=== PATIENT | male | born 1965 | race Caucasian/White ===

== ENCOUNTER 2024-02-19 08:22 | Outpatient (OUT) | payer OTHER, SELFPAY ==
[2024-02-19 08:57] LABS: Basophils Absolute Auto 0.1 10^3/uL (0.0-0.1); Basophils Percent Auto 1.2 % (0.2-2.0); Eosinophils Absolute Auto 0.2 10^3/uL (0.0-0.7); Eosinophils Percent Auto 2.9 % (0.9-7.0); Hematocrit 47.6 % (42.0-54.0); Hemoglobin 16.3 g/dL (14.0-18.0); Immature Granulocytes Abs Auto 0.03 10^3/uL (0.00-0.03); Immature Granulocytes Pct Auto 0.4 % (0.0-0.5); Lymphocytes Absolute Auto 2.4 10^3/uL (1.2-3.8); Lymphocytes Percent Auto 34.5 % (20.5-60.0); Mean Corpuscular HGB Conc 34.2 g/dL (29.9-35.2); Mean Corpuscular Hemoglobin 31.3 pg (25.9-34.0); Mean Corpuscular Volume 91.4 fL (80.0-94.0); Mean Platelet Volume 9.1 fL (9.5-13.5); Monocytes Absolute Auto 1.1 10^3/uL (0.3-0.8); Neutrophils Absolute Auto 3.1 10^3/uL (1.4-6.5); Platelet Count 262 10^3/uL (150-450); Red Blood Count 5.21 10^6/uL (4.70-6.10); Red Cell Distribution Width 11.4 % (11.0-15.0); White Blood Count 6.9 10^3/uL (4.0-11.0)
[2024-02-19 09:59] LABS: Alanine Aminotransferase 38 U/L (16-63); Albumin Globulin Ratio 1.1; Albumin Level 4.3 g/dL (3.4-5.0); Alkaline Phosphatase 124 U/L (46-116); Anion Gap 14.2; Aspartate Amino Transferase 28 U/L (15-37); BUN Creatinine Ratio 16.5; Bilirubin Total 0.6 mg/dL (0.2-1.0); Calcium 9.9 mg/dL (8.5-10.1); Carbon Dioxide 30.8 mmol/L (21.0-32.0); Chloride 101 mmol/L (98-107); Chol HDL Ratio 3.1; Cholesterol 233 mg/dL (<=200); Estimated GFR (African America >60 (>=60 mL/min/1.73m^2); Estimated GFR (Non-African Ame >60 (>=60 mL/min/1.73m^2); Free T3 4.09 pg/mL (2.18-3.98); HDL Cholesterol 74 mg/dL (40-60); Sodium 143 mmol/L (136-145); Thyroid Stimulating Hormone 4.688 uIU/mL (0.358-3.740); Total Protein 8.3 g/dL (6.4-8.2); Triglycerides 334 mg/dL (<=150); VLDL CHOLESTEROL 66.8 mg/dL
[2024-02-19 10:19] LABS: Estimated Average Glucose 235 mg/dL; Glycohemoglobin A1C 9.8 % (4.5-6.2)
[2024-02-19 10:27] LABS: Glucose 45 mg/dL (74-106)
[2024-02-20 06:11] LABS: Insulin <0.4 uIU/mL (2.6-24.9)
== END 2024-02-19 08:23 | disposition home or self-care (01) ==
LOC: LAB 08:25
PROVIDERS: PCP Nurse Practitioner Family; Visit Provider Nurse Practitioner Family
DX: E11.65 Type 2 diabetes mellitus with hyperglycemia (principal); Z12.12 Encounter for screening for malignant neoplasm of rectum; E03.9 Hypothyroidism, unspecified
CPT/HCPCS: 36415; 80053; 80061; 83036; 83525; 84436; 84443; 84481; 85025

== ENCOUNTER 2024-10-18 13:57 | Outpatient (OUT) | payer OTHER, SELFPAY ==
--- NOTE | 2024-10-18 14:29 | XR_ITS ---
[facility] [id number] Patient Name: JOSUÉ JORDAN MRN: [id number] date: 1965 Sex: M Assigned Patient Location: LAB Current Patient Location: LAB Accession/Order Number: [id number] Exam Date: 10/18/2024 15:00 Report Date: 10/18/2024 15:01 At the request of: OLAYINKA AUGUSTINE Procedure: XR foot RT 2V Right foot 3 views. Reason for exam: Chronic right heel pain for 2 years. COMPARISON: None. FINDINGS: No focal soft tissue abnormality. No acute bony process is seen. Plantar spurring. No bony erosions. XR/XR foot RT 2V IMPRESSION: Plantar spurring. No acute bony process. Impression dictated by: Radha Coleman Jr.ODevyn 10/18/2024 3:01 PM Dictation Location: [place] [address] Electronically authenticated by: [id number] Y Date: 10/18/2024 15:01
== END 2024-10-18 13:58 | disposition home or self-care (01) ==
LOC: LAB 14:02
PROVIDERS: PCP Nurse Practitioner Family; Visit Provider Nurse Practitioner Family
DX: M79.671 Pain in right foot (principal); E11.65 Type 2 diabetes mellitus with hyperglycemia; M77.31 Calcaneal spur, right foot
CPT/HCPCS: 36415; 73620; 83036

== ENCOUNTER 2025-02-17 08:34 | Outpatient (OUT) | payer OTHER, SELFPAY ==
--- OUTSIDE RECORDS SUMMARY | 2025-02-17 08:42 | XMS_ITS | CCD ---
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 Role Phone DR BREE HUFF Attending Unavailable [place], DR LANGLEY Primary Care Unavailable DR BREE HUFF Admitting Unavailable REFUGIO, DR BREE Doan Consulting Unavailable CHAN, DR MANZANO Consulting Unavailable SENA FRANZ Consulting Unavailable Allergies Allergy ClassificationReported Allergen(s)Allergy TypeDate of OnsetReaction(s) Facility (1 source)PenicillinDrug AllergyThe [facility] Rep[facility] Problems Problem ClassificationProblemDateDocumented DateEpisodic/ChronicAlcohol-related disorders (2 sources)Alcohol dependence with withdrawal delirium; Translations: [Alcoholic hepatitis without ascites]Onset: 18-85-2761UrnuvcdTimdfys dysrhythmias (4 sources)Palpitations; Translations: [PALPITATIONS]Onset: 46-99-2492Caeokexb Conduction disorders (1 source)Left bundle-branch block, unspecified; Translations: [LT BUNDLE-BRANCH BLOCK UNSPECIFIED]Onset: 38-70-0091HrueaonPigmdmox mellitus without complication (1 source)Type 2 diabetes mellitus without complications; Translations: [TYPE 2 DM WITHOUT COMPLICATIONS]Onset: 63-28-7028BvbonunHepxleqxv of lipid metabolism (1 source)Pure hypercholesterolemia, unspecified; Translations: [PURE HYPERCHOLESTEROLEMIA UNSPEC]Onset: 21-98-8712WovkkrrNsvvozypw hypertension (1 source)Essential (primary) hypertension; Translations: [ESSENTIAL PRIMARY HYPERTENSION]Onset: 55-68-1501MoinzkpBlduqzrkpoaat and screening for infectious disease (1 source)Encounter for immunization; Translations: [ENCOUNTER FOR IMMUNIZATION] Onset: 93-48-5053BcxipaqfJhvhf aftercare (1 source)[facility] (current) use of insulin; Translations: [ASSISTED CURRENT USE OF INSULIN]Onset: 39-94-1636PizjsukhNjzyx aftercare (1 source)Other watermelon harvesting supervisor (current) drug therapy; Translations: [OTH ASSISTED CURRENT DRUG THERAPY]Onset: 74-29-1726NevduftdRwpcfmnuqibb (1 source)CONTACT W/AND (SUSP) EXPOS COVID-19; Translations: [CONTACT W/AND (SUSP) EXPOS COVID-19]Onset: 03-19-2022 Results Test NameValueInterpretationReference RangeFacilityCBC AUTO DIFFon 03-14-2022 BASO #0.1 103/ulNormal0.0-0.1[facility] HospitalComment on above:Performed By: #### CBC #### [facility] [address] [place] [address] Dr. David Schmittsophils/100 WBC (Bld)0.9 %Normal0.2-2.0[facility] Comment on above:Performed By: #### CBC #### [facility] [address] [place] [address] Dr. David Ocampo #0.2 103/ulNormal0.0-0.7The [facility] HospitalComment on above: Performed By: #### CBC #### [facility] [address] [place] [address] Dr. David Riveraosinophils/100 WBC (Bld)2.5 %Normal0.9-7.0[facility] Comment on above:Performed By: #### CBC #### [facility] [address] [place] [address] Dr. David Riverarythrocyte distribution width (RBC) [Ratio]11.8 %Yeieri04.0-15.0 [facility] HospitalComment on above:Performed By: #### CBC #### [facility] [address] [place] [address] Dr. David Mckoyatocrit (Bld) [Volume fraction]42.6 %Ccnbld23.0-54.0[facility] HospitalComment on above:Performed By: #### CBC #### [facility] [address] [place] [address] Dr. Yilan ChangHemoglobin (Bld) [Mass/Vol]14.4 g/vVQhmcdu58.0-18.0The [facility] HospitalComment on above:Performed By: #### CBC #### [facility] [address] [place] [address] Dr. David Gonzalez #0.03 10e3/ulNormal0.00-0.03The [facility] HospitalComment on above:Performed By: #### CBC #### [facility] [address] [place] [address] Dr. David Gonzalez %0.4 %Normal0.0-0.5The [facility] HospitalComment on above: Performed By: #### CBC #### [facility] [address] [place] [address] Dr. David Iqbal #1.6 103/ulNormal1.2-3.8The [facility] HospitalComment on above:Performed By: #### CBC #### [facility] [address] [place] [address] Dr. David Medranohocytes/100 WBC (Bld)23.2 %Jxotsi28.5-60.0The [facility] HospitalComment on above:Performed By: #### CBC #### [facility] [address] [place] [address] Dr. David MatamorosUAL DIFF REQNONormalThe [facility] HospitalComment on above: Performed By: #### CBC #### [facility] [address] [place] [address] Dr. David Babcock (RBC) [Entitic mass]30.8 vtYexltm50.9-34.0The [facility] HospitalComment on above:Performed By: #### CBC #### [facility] [address] [place] [address] Dr. David Babcock (RBC) [Mass/Vol]33.8 g/sMTlesqn01.9-35.2The [facility] HospitalComment on above:Performed By: #### CBC #### [facility] [address] [place] [address] Dr. David BabcockV (RBC) [Entitic vol]91.2 qJJggeze26.0-94.0The [facility] HospitalComment on above:Performed By: #### CBC #### [facility] [address] [place] [address] Dr. David Duncan #0.9 103/ulCritically high0.3-0.8[facility] Comment on above:Performed By: #### CBC #### [facility] [address] [address] [address] David Fairocytes/100 WBC (Bld)13.4 %Critically high1.7-12.0The [facility] HospitalComment on above:Performed By: #### CBC #### [facility] [address] [place] [address] Dr. David Lozano #4.1 103/ulNormal1.4-6.5The [facility] HospitalComment on above:Performed By: #### CBC #### [facility] [address] [place] [address] Dr. David Singhutrophils/100 WBC (Bld)59.6 %Wsloju70.0-75.0The [facility] HospitalComment on above:Performed By: #### CBC #### [facility] [address] [place] [address] Dr. David Chiulet mean volume (Bld) [Entitic vol]9.0 fLCritically low 9.5-13.5The [facility] HospitalComment on above:Performed By: #### CBC #### [facility] [address] [place] [address] Dr. David BenavidezPLT229 103/mzXudump419-446Xjz [facility] HospitalComment on above: Performed By: #### CBC #### [facility] [address] [place] [address] Dr. David BenavidezRBC4.67 106/ulCritically low4.70-6.10The [facility] HospitalComment on above:Performed By: #### CBC #### [facility] [address] [address] [address] David BenavidezWBC6.8 103/ulNormal4.0-11.0The [facility] HospitalComment on above: Performed By: #### CBC #### [facility] [address] [place] [address] Dr. David Castellanos 14(COMP METB)on 72-94-7242Gabsgzi [Mass/Vol]3.7 g/dLNormal 3.4-5.0The [facility] HospitalComment on above:Performed By: #### CMP #### [facility] [address] [place] [address] Dr. David BenavidezAlbumin/Globulin [Mass ratio]0.9 {ratio}NormalThe [facility] HospitalComment on above:Performed By: #### CMP #### [facility] [address] [place] [address] Dr. David SerranoP [Catalytic activity/Vol]148 U/LCritically ijxe37-940Vup [facility] HospitalComment on above:Performed By: #### CMP #### [facility] [address] [place] [address] Dr. David Metcalf [Catalytic activity/Vol]80 U/LCritically bmxd25-93Tma [facility] HospitalComment on above:Performed By: #### CMP #### [facility] [address] [place] [address] Dr. David Ambrose gap [Moles/Vol]18.1 mmol/LNormalThe [facility] Comment on above:Performed By: #### CMP #### [facility] [address] [place] [address] Dr. David BenavidezAST [Catalytic activity/Vol]50 U/LCritically zrht21-64Lcy [facility] HospitalComment on above:Performed By: #### CMP #### [facility] [address] [place] [address] Dr. David BenavidezBilirubin [Mass/Vol]0.5 mg/dLNormal0.2-1.0[facility] Comment on above:Performed By: #### CMP #### [facility] [address] [address] [address] David BenavidezCalcium [Mass/Vol]8.8 mg/dLNormal8.5-10.1The [facility] Comment on above:Performed By: #### CMP #### [facility] [address] [address] [address] David BenavidezChloride [Moles/Vol]97 mmol/LCritically gpa49-699Vqe [facility] HospitalComment on above:Performed By: #### CMP #### [facility] [address] [address] [address] David BenavidezCO2 [Moles/Vol]21.1 mmol/FIlrdvh73.0-32.0[facility] Comment on above:Performed By: #### CMP #### [facility] [address] [place] [address] Dr. David BenavidezCreatinine [Mass/Vol]0.62 mg/dLCritically low0.70-1.30The [facility] HospitalComment on above:Performed By: #### CMP #### [facility] [address] [address] [address] David RiveraGFR-AF NIUEAN>60Normal>=60The [facility] HospitalComup health system on above:Performed By: #### CMP #### [facility] [address] [address] [address] David RiveraGFR-NON AF NIUEAN>60Normal>=60The [facility] HospitalComment on above:Performed By: #### CMP #### [facility] [address] [address] [address] David BenavidezGlobulin (S) [Mass/Vol]3.9 g/dLNormalThe [facility] HospitalComup health system on above:Performed By: #### CMP #### [facility] [address] [address] [address] David BenavidezGlucose [Mass/Vol]249 mg/dLCritically wokn78-472Xkq [facility] HospitalComment on above:Performed By: #### CMP #### [facility] [address] [place] [address] Dr. David BenavidezPotassium [Moles/Vol]3.2 mmol/LCritically low3.5-5.1The [facility] HospitalComment on above:Performed By: #### CMP #### [facility] [address] [address] [address] David BenavidezProtein [Mass/Vol]7.6 g/dLNormal6.4-8.2[facility] Comment on above:Performed By: #### CMP #### [facility] [address] [address] [address] David BenavidezSodium [Moles/Vol]133 mmol/LCritically grn277-159Emc [facility] HospitalComment on above:Performed By: #### CMP #### [facility] [address] [place] [address] Dr. David BenavidezUrea nitrogen [Mass/Vol]8.0 mg/dLNormal7.0-18.0The [facility] HospitalComment on above:Performed By: #### CMP #### [facility] [address] [place] [address] Dr. David Cheung nitrogen/Creatinine [Mass ratio]12.9 mg/mgNormalThe [facility] HospitalComment on above:Performed By: #### CMP #### [facility] [address] [place] [address] Dr. David BenavidezACETONE SERUMon 34-12-8518HBULKZWHjmnzlrnEuqdwbKUNXWXVOFmx [facility] HospitalComment on above:Performed By: #### ACETON #### [facility] [address] [place] [address] Dr. David OrozcoAC [place] ADMITon 16-03-6611BO [Catalytic activity/Vol]214 U/L Qafnqk90-435Pwh [facility] HospitalComment on above:Performed By: #### CMADM, CMP, ETH #### [facility] [address] [place] [address] Dr. David Davis.MB [Mass/Vol]4.73 ng/mLCritically high<=3.60The [facility] HospitalComment on above:Performed By: #### CMADM, CMP, ETH #### [facility] [address] [address] [address] David BenavidezHSTROP17.1 pg/mLNormal4.0-76.1The [facility] Campusment on above:Result Comment: CUT-OFF POINTS HAVE BEEN ESTABLISHED BASED ON THE FOURTH UNIVERSAL DEFINITIONS OF MYOCARDIAL INFARCTION. THE UPPER REFERENCE LIMIT (URL) OF TROPONIN, DEFINED THE 99TH PERCENTILE OF cTnI DISTRIBUTION IN A REFERENCE POPULATION, HAS BEEN CONFIRMED THE DECISION THRESHOLD FOR HI DIAGNOSIS.Performed By: #### CMADM, CMP, ETH #### [facility] [address] [place] [address] Dr. David BenavidezMYO35 ng/aIDtpgnc87-42Nef [facility] HospitalComment on above: Performed By: #### CMADOMENIC CMP, ETH #### [facility] [address] [place] [address] Dr. David Valenzuela AUTO DIFFon 49-34-7393GVLW #0.1 103/ulNormal0.0-0.1The [facility] HospitalComment on above:Performed By: #### CBC #### [facility] [address] [place] [address] Dr. David Schmittsophils/100 WBC (Bld)1.1 %Normal0.2-2.0[facility] Comment on above:Performed By: #### CBC #### [facility] [address] [place] [address] Dr. David Ocampo #0.1 103/ulNormal0.0-0.7The [facility] HospitalComup health system on above: Performed By: #### CBC #### [facility] [address] [place] [address] Dr. David Riveraosinophils/100 WBC (Bld)0.8 %Critically low0.9-7.0The [facility] HospitalComment on above:Performed By: #### CBC #### [facility] [address] [place] [address] Dr. David Riverarythrocyte distribution width (RBC) [Ratio]11.6 %Tehxdd88.0-15.0 The [facility] HospitalComment on above:Performed By: #### CBC #### [facility] [address] [address] [address] David Mckoyatobradt (Bld) [Volume fraction]43.7 %Hqaemk61.0-54.0The [facility] HospitalComment on above:Performed By: #### CBC #### [facility] [address] [place] [address] Dr. David BenavidezHemoglobin (Bld) [Mass/Vol]15.3 g/wGUxpwde49.0-18.0The [facility] HospitalComment on above:Performed By: #### CBC #### [facility] [address] [place] [address] Dr. David Gonzalez #0.02 10e3/ulNormal0.00-0.03The [facility] HospitalComment on above:Performed By: #### CBC #### [facility] [address] [place] [address] Dr. David Gonzalez %0.3 %Normal0.0-0.5The [facility] HospitalComment on above: Performed By: #### CBC #### [facility] [address] [place] [address] Dr. David Iqbal #0.7 103/ulCritically low1.2-3.8The [facility] Comment on above:Performed By: #### CBC #### [facility] [address] [place] [address] Dr. David Medranohocytes/100 WBC (Bld)10.7 %Critically low20.5-60.0The [facility] HospitalComment on above:Performed By: #### CBC #### [facility] [address] [place] [address] Dr. David MatamorosUAL DIFF REQNONormalThe [facility] HospitalComment on above: Performed By: #### CBC #### [facility] [address] [place] [address] Dr. David Gtz (RBC) [Entitic mass]31.0 jcCwwzjv58.9-34.0The [facility] HospitalComment on above:Performed By: #### CBC #### [facility] [address] [place] [address] Dr. David Babcock (RBC) [Mass/Vol]35.0 g/iJXjlost75.9-35.2The [facility] HospitalComment on above:Performed By: #### CBC #### [facility] [address] [place] [address] Dr. David Babcock (RBC) [Entitic vol]88.5 fSDuhlvb18.0-94.0The [facility] HospitalComment on above:Performed By: #### CBC #### [facility] [address] [place] [address] Dr. David Duncan #0.8 103/ulNormal0.3-0.8The [facility] HospitalComment on above:Performed By: #### CBC #### [facility] [address] [place] [address] Dr. David Fairocytes/100 WBC (Bld)13.1 %Critically high1.7-12.0The [facility] HospitalComment on above:Performed By: #### CBC #### [facility] [address] [place] [address] Dr. David Lozano #4.6 103/ulNormal1.4-6.5The [facility] HospitalComment on above:Performed By: #### CBC #### [facility] [address] [place] [address] Dr. David Ordonezophils/100 WBC (Bld)74.0 %Khnete95.0-75.0The [facility] HospitalComment on above:Performed By: #### CBC #### [facility] [address] [place] [address] Dr. David Rogers mean volume (Bld) [Entitic vol]9.3 fLCritically low 9.5-13.5The [facility] HospitalComment on above:Performed By: #### CBC #### [facility] [address] [place] [address] Dr. David HillT242 103/tuPccyof331-342Gxv [facility] HospitalComment on above: Performed By: #### CBC #### [facility] [address] [place] [address] Dr. David BenavidezRBC4.94 106/ulNormal4.70-6.10The [facility] HospitalComment on above:Performed By: #### CBC #### [facility] [address] [place] [address] Dr. David BenavidezWBC6.3 103/ulNormal4.0-11.0The [facility] HospitalComment on above: Performed By: #### CBC #### [facility] [address] [place] [address] Dr. David Resendiz BLOODon 83-50-5391Chtxltllswh examination of blood, cultureCulture Observations: NO GROWTH AT 5 DAYS.NormalThe [facility] HospitalComment on above:Performed By: #### CBC #### [facility] [address] [place] [address] Dr. David BenavidezMicroscopic examination of blood, cultureCulture Observations: NO GROWTH AT 5 DAYS.NormalThe [facility] HospitalComment on above:Performed By: #### CBC #### [facility] [address] [place] [address] Dr. David BenavidezCovid-19 PCR (CVDTB)on 22-64-2986AYEN-CoV-2 (COVID-19) RNA LENORE+probe Ql (Unsp spec)Not detectedNormalNOT DETECTEDThe [facility] Comment on above:Result Comment: When diagnostic testing is negative, the possibility of a false negative should be considered in the context of a patient's recent exposures and the presence of clinical signs and symptoms consistent with SARS-CoV-2. This test is not yet approved or cleared by the [place] FDA. When there are no FDA-approved or cleared tests available, and other criteria are met, FDA can make tests available under an emergency access mechanism called an Emergency Use Authorization (EUA). The EUA for this test is supported by the Estate Planning Paralegal of Health and Human Service's declaration that circumstances exist to justify the emergency use of in vitro diagnostics for the detection and/or diagnosis of the virus that causes COVID-19. This EUA will remain in effect for the duration of the COVID-19 declaration justifying emergency of IVDs, unless it is terminated or revoked by the FDA (after which the test may no longer be used).Performed By: #### CVDTBH #### [facility] [address] [place] [address] Dr. David Calvert URINE PROFILEon 23-65-5820Ctomuxlln Ql (U)NegativeNormal NEGATIVEOhiohealth Grove City Methodist HospitalComment on above:Performed By: #### ERUR #### [facility] [address] [place] [address] Dr. David BenavidezClarity (U)CLEARNormalCLEAROhiohealth Grove City Methodist HospitalComment on above: Performed By: #### ERUR #### [facility] [address] [place] [address] Dr. David Garcia (U)LT. YELLOWNormalYELLOWOhiohealth Grove City Methodist HospitalComment on above:Performed By: #### ERUR #### [facility] [address] [place] [address] Dr. David Chaparro micrscopic examination will be performed if indicated. NormalOhiohealth Grove City Methodist HospitalComment on above:Performed By: #### ERUR #### [facility] [address] [place] [address] Dr. David BenavidezGlucose Ql (U)>1000AbnormalNEGATIVEOhiohealth Grove City Methodist HospitalComment on above:Performed By: #### ERUR #### [facility] [address] [place] [address] Dr. David BenavidezHemoglobin Ql (U)NegativeNormalNEGKnox Community Hospital Comment on above:Performed By: #### ERUR #### [facility] [address] [place] [address] Dr. David BenavidezKetones Ql (U)40 mg/dlAbnormalNEGKnox Community Hospital Comment on above:Performed By: #### ERUR #### [facility] [address] [place] [address] Dr. Yilan ChangLEUKOCYTESNegativeNormalNEGATIVEOhiohealth Grove City Methodist HospitalComment on above:Performed By: #### ERUR #### [facility] [address] [place] [address] Dr. David Millantrite Ql (U)NegativeNormalNEGATIVEOhiohealth Grove City Methodist HospitalComment on above:Performed By: #### ERUR #### [facility] [address] [place] [address] Dr. David BenavidezpH (U)7.0 [pH]Normal5-9[facility] HospitalComment on above: Performed By: #### ERUR #### [facility] [address] [place] [address] Dr. David BenavidezSPEC GRAVITY<=1.693Jknucfbi9.005-<=1.025[facility] Comment on above:Performed By: #### ERUR #### [facility] [address] [place] [address] Dr. David BenavidezUA PROTEINNegativermalNEGATIVE/ TRACEOhiohealth Grove City Methodist Hospital Comment on above:Performed By: #### ERUR #### [facility] [address] [place] [address] Dr. David Norris MICRO INDNOT INDICATEDNoPremier Health Miami Valley HospitalComment on above:Performed By: #### ERUR #### [facility] [address] [place] [address] Dr. David Boxbilinogen Qn (U)0.2 {Bri'U}/dLNormal0.2 - 1.0[facility] HospitalComment on above:Performed By: #### ERUR #### [facility] [address] [place] [address] Dr. David Mejia (BLD ALC)on 59-43-7597EZI NOTENOTE: 80 mg/dl is the legal limit for a blood alcohol levelNoPremier Health Miami Valley HospitalComment on above: Performed By: #### CBC #### [facility] [address] [place] [address] Dr. David Coffeyanol [Mass/Vol]mg/dLNoPremier Health [facility] HospitalComment on above:Performed By: #### CBC #### [facility] [address] [address] [address] David BenavidezLACTATE/LACTIC ACIDon 44-00-3315Brtohaj [Moles/Vol]1.2 mmol/L Normal0.4-1.9The [facility] HospitalComment on above:Performed By: #### LACT #### [facility] [address] [address] [address] David Gloriactate [Moles/Vol]1.7 mmol/LNormal0.4-1.9The [facility] Comment on above:Performed By: #### CBC #### [facility] [address] [place] [address] Dr. David BenavidezPOINT OF CARE GLUCOSEon [id number] [Mass/Vol]311 mg/dL Critically [id number] [facility] HospitalComment on above:Performed By: #### POCGLUC #### [facility] [address] [place] [address] [address] David BenavidezGlucose [Mass/Vol]322 mg/dLCritically jeaf81-028Muy [facility] HospitalComment on above:Performed By: #### CBC #### [facility] [address] [place] [address] Dr. David BenavidezPROF 14(COMP METB)on [id number] [Mass/Vol]4.1 g/dLNormal 3.4-5.0The [facility] HospitalComment on above:Performed By: #### CMADM, CMP, ETH #### [facility] [address] [address] [address] David BenavidezAlbumin/Globulin [Mass ratio]1.0 {ratio}NormalThe [facility] HospitalComment on above:Performed By: #### CMADM, CMP, ETH #### [facility] [address] [place] [address] Dr. David BenavidezALP [Catalytic activity/Vol]147 U/LCritically hcts13-007Apx [facility] HospitalComment on above:Performed By: #### CMADM, CMP, ETH #### [facility] [address] [place] [address] [address] David SerranoT [Catalytic activity/Vol]96 U/LCritically bsbe32-63Yjb [facility] HospitalComment on above:Performed By: #### CMADM, CMP, ETH #### [facility] [address] [place] [address] Dr. David Ambrose gap [Moles/Vol]16.1 mmol/LNormalThe [facility] Comment on above:Performed By: #### CMADM, CMP, ETH #### [facility] [address] [place] [address] Dr. David Goldberg [Catalytic activity/Vol]67 U/LCritically ffoo95-77Npr [facility] HospitalComment on above:Performed By: #### CMADM, CMP, ETH #### [facility] [address] [place] [address] Dr. David BenavidezBilirubin [Mass/Vol]1.0 mg/dLNormal0.2-1.0[facility] Comment on above:Performed By: #### CMADM, CMP, ETH #### [facility] [address] [place] [address] Dr. David BenavidezCalcium [Mass/Vol]9.3 mg/dLNormal8.5-10.1[facility] Comment on above:Performed By: #### CMADM, CMP, ETH #### [facility] [address] [place] [address] Dr. David BenavidezChloride [Moles/Vol]95 mmol/LCritically smo06-125Iti [facility] HospitalComment on above:Performed By: #### CMADM, CMP, ETH #### [facility] [address] [place] [address] Dr. David BenavidezCO2 [Moles/Vol]26.0 mmol/LEsrila92.0-32.0[facility] Comment on above:Performed By: #### CMADM, CMP, ETH #### [facility] [address] [place] [address] Dr. David Otooleatinine [Mass/Vol]0.71 mg/dLNormal0.70-1.30The [facility] HospitalComment on above:Performed By: #### CMADM, CMP, ETH #### [facility] [address] [place] [address] Dr. David RiveraGFR-AF NIUEAN>60Normal>=60The [facility] HospitalComment on above:Performed By: #### CMADM, CMP, ETH #### [facility] [address] [place] [address] Dr. David RiveraGFR-NON AF NIUEAN>60Normal>=60The [facility] HospitalComment on above:Performed By: #### CMADM, CMP, ETH #### [facility] [address] [place] [address] Dr. David BenavidezGlobulin (S) [Mass/Vol]4.1 g/dLNormalThe [facility] HospitalComment on above:Performed By: #### CMADM, CMP, ETH #### [facility] [address] [place] [address] Dr. David BenavidezGlucose [Mass/Vol]265 mg/dLCritically [id number] [facility] HospitalComment on above:Performed By: #### CMADM, CMP, ETH #### [facility] [address] [place] [address] Dr. David BenavidezPotassium [Moles/Vol]3.1 mmol/LCritically low3.5-5.1The [facility] HospitalComment on above:Performed By: #### CMADM, CMP, ETH #### [facility] [address] [place] [address] Dr. David BenavidezProtein [Mass/Vol]8.2 g/dLNormal6.4-8.2[facility] Comment on above:Performed By: #### CMADM, CMP, ETH #### [facility] [address] [place] [address] Dr. David BenavidezSodium [Moles/Vol]134 mmol/LCritically bvs750-860Pia [facility] HospitalComment on above:Performed By: #### CMADM, CMP, ETH #### [facility] [address] [place], [place] [address] Dr. David BenavidezUrea nitrogen [Mass/Vol]8.0 mg/dLNormal7.0-18.0The [facility] HospitalComup health system on above:Performed By: #### CMADM, CMP, ETH #### [facility] [address] [place], [place] [address] Dr. David BenavidezUrea nitrogen/Creatinine [Mass ratio]11.3 mg/mgNormalThe [facility] HospitalComment on above:Performed By: #### CMADM, CMP, ETH #### [facility] [address] [place], [place] [address] Dr. David BenavidezXR CHEST 1 Von [id number] CHEST 1 VEXAM: Chest x-ray HISTORY: . Palpitations . COMPARISON: None. TECHNIQUE: Single view of the chest FINDINGS: Heart and vascularity are unremarkable. Lungs are free of focal infiltrates. No acute bony abnormality is appreciated. EKG leads overlie the chest. IMPRESSION: No acute heart or lung disease identified. Electronically authenticated by: SENA FRANZ Date: 2022-03-13 11:10[facility] Encounters Encounter DateEncounter Type[facility] ProviderFacilityStart: 03-13-2022 End: [id number] BREE HUFFFacility:H1 Payers DatePayer CategoryPayerPolicy [id number] Summary Purpose Family History No Family History Records Found Advance Directives No Advanced Directives Records Found Additional Source Comments (unrecognized sect ion and content) No Status Records Found INFORMATION SOURCE (unrecogn ized section and content) DATE CREATED AUTHOR 03/22/2022 [facility] FOR RECORDS PERTAINING TO PATIENTS WHO ARE OR HAVE BEEN ENROLLED IN A CHEMICAL DEPENDENCY/SUBSTANCEABUSE PROGRAM, SOME INFORMATION MAY BE OMITTED. This clinical summary was aggregated from multiple sources. Caution should be exercised in using it in the provision of clinical care. This summary normalizes information from multiple sources, and as a consequence, information in this document may materially change the coding, format and clinical context of patient data. In addition, data may be omitted in some cases. CLINICAL DECISIONS SHOULD BE BASED ON THE PRIMARY CLINICAL RECORDS. [facility]. provides no warranty or guarantee of the accuracy or completeness of information in this document.
[2025-02-17 09:07] LABS: Hematocrit 39.8 % (42.0-54.0); Hemoglobin 13.5 g/dL (14.0-18.0); Immature Granulocytes Abs Auto 0.03 10^3/uL (0.00-0.03); Immature Granulocytes Pct Auto 0.4 % (0.0-0.5); Lymphocytes Absolute Auto 1.5 10^3/uL (1.2-3.8); Mean Corpuscular HGB Conc 33.9 g/dL (29.9-35.2); Mean Corpuscular Hemoglobin 30.8 pg (25.9-34.0); Mean Corpuscular Volume 90.9 fL (80.0-94.0); Platelet Count 239 10^3/uL (150-450); Red Blood Count 4.38 10^6/uL (4.70-6.10); White Blood Count 8.2 10^3/uL (4.0-11.0)
[2025-02-17 09:32] LABS: Alanine Aminotransferase 45 U/L (16-63); Albumin Globulin Ratio 1.1; Albumin Level 3.9 g/dL (3.4-5.0); Alkaline Phosphatase 99 U/L (46-116); Anion Gap 13.0; Aspartate Amino Transferase 36 U/L (15-37); Blood Urea Nitrogen 6.0 mg/dL (7.0-18.0); Calcium 8.7 mg/dL (8.5-10.1); Carbon Dioxide 29.2 mmol/L (21.0-32.0); Chloride 100 mmol/L (98-107); Cholesterol 133 mg/dL (<=200); Estimated GFR (African America >60 (>=60 mL/min/1.73m^2); Estimated GFR (Non-African Ame >60 (>=60 mL/min/1.73m^2); Free T3 2.79 pg/mL (2.18-3.98); Globulin 3.4 g/dL; Glucose 79 mg/dL (74-106); HDL Cholesterol 65 mg/dL (40-60); Potassium 3.2 mmol/L (3.5-5.1); Sodium 139 mmol/L (136-145); Thyroid Stimulating Hormone 3.042 uIU/mL (0.358-3.740); Total Protein 7.3 g/dL (6.4-8.2); Triglycerides 127 mg/dL (<=150); Uric Acid 4.3 mg/dL (3.5-7.2); VLDL CHOLESTEROL 25.4 mg/dL
== END 2025-02-17 08:35 | disposition home or self-care (01) ==
PROVIDERS: PCP Nurse Practitioner Family; Visit Provider Nurse Practitioner Family
DX: Z00.00 Encounter for general adult medical examination without abnormal findings (principal); Z12.5 Encounter for screening for malignant neoplasm of prostate
CPT/HCPCS: 36415; 80053; 80061; 83036; 83525; 84436; 84443; 84481; 84550; 85025; G0103